=== PATIENT | male | born 1990 | race Caucasian/White ===

== ENCOUNTER 2017-04-09 20:02 | Emergency (ER) | payer OTHER ==
[2017-04-09 21:10] VITALS: BP 103/60
--- NOTE | 2017-04-09 21:26 | RAD ---
INDICATION: Right foot injury COMPARISON: None TECHNIQUE: AP, lateral, and oblique views were obtained. FINDINGS: There are mildly displaced transverse fracture through the distal aspects of the third and fourth metatarsals. There are no other fractures. The articular relationships are maintained. There is prominent soft tissue swelling over the mid and forefoot. IMPRESSION: THIRD AND FOURTH METATARSAL FRACTURES.
--- NOTE | 2017-04-09 21:26 | RAD ---
INDICATION: Ankle injury COMPARISON: None TECHNIQUE: AP, lateral, and oblique views were obtained. FINDINGS: The bony structures, joint spaces, and soft tissues are normal for age. IMPRESSION: NEGATIVE EXAMINATION.
[2017-04-09] MEDS ORDERED: Ibuprofen TAB* 800 MG PO ONE (22:09)
[2017-04-09] MEDS ORDERED: oxyCODONE/Acetamin 5/325 MG* TAB PO ONE (22:10)
--- NOTE | 2017-04-09 22:12 | ED ---
Lower Extremity - HPI Summary HPI Summary: 26M presents with right foot pain today after jumped off rock. pain is greatest in his toes with swelling located there. he has not taken anything for pain. He has not ambulate since. He denies any numbness or tingling. He denies any previous injury to the area. - History of Current Complaint Chief Complaint: EDExtremityLower Stated Complaint: RIGHT FOOT INJURY Time Seen by Provider: 04/09/17 21:03 Pain Intensity: 6 - Allergies/Home Medications Allergies/Adverse Reactions: Allergies Allergy/AdvReac Type Severity Reaction Status Date / Time No Known Allergies Allergy Verified 04/09/17 20:08 PMH/Surg Hx/FS Hx/Imm Hx Endocrine/Hematology History: Denies: Hx Anticoagulant Therapy Cardiovascular History: Denies: Hx Hypertension Infectious Disease History: No Infectious Disease History: Denies: Traveled Outside the [place] in Last 30 Days - Family History Known Family History: Positive: Hypertension - Social History Alcohol Use: Weekly Substance Use Type: Reports: Marijuana Smoking Status (MU): Former Smoker Review of Systems Negative: Fever Negative: Chest Pain Negative: Shortness Of Breath Positive: Myalgia - right foot pain All Other Systems Reviewed And Are Negative: Yes Physical Exam Triage Information Reviewed: Yes Vital Signs On Initial Exam: Initial Vitals Temp Pulse Resp BP Pulse Ox 99.7 F 92 16 103/61 99 04/09/17 20:05 04/09/17 20:05 04/09/17 20:05 04/09/17 20:05 04/09/17 20:05 Vital Signs Reviewed: Yes Appearance: Positive: Well-Appearing Skin: Positive: Warm, Dry Head/Face: Positive: Normal Head/Face Inspection Eyes: Positive: Normal, EOMI, Conjunctiva Clear Respiratory/Lung Sounds: Positive: Clear to Auscultation, Breath Sounds Present Cardiovascular: Positive: Normal, RRR Musculoskeletal: Positive: Limited @ - toes right, Edema Right - right toes, Other - tender over 3 and 4th toes, capillary refill<2 secs, good pulses Procedures - Splinting Location: right foot Hand-Made Type: fiberglass Splint: posterior walking Pre-Proc Neuro Vasc Exam: normal Post-Proc Neuro Vasc Exam: normal Diagnostics - Vital Signs Vital Signs Temp Pulse Resp BP Pulse Ox 04/09/17 21:04 99.1 F 92 16 103/60 98 04/09/17 20:05 99.7 F 92 16 103/61 99 - Laboratory Lab Statement: Any lab studies that have been ordered have been reviewed, and results considered in the medical decision making process. Lower Extremity Course/Dx - Course Course Of Treatment: 26M presents with right foot pain today after jumped off rock. pain is greatest in his toes with swelling located there. he has not taken anything for pain. He has not ambulate since. He denies any numbness or tingling. He denies any previous injury to the area. xray showed fx of 3rd and 4th metatarsal. placed in posterior walking splint and told to follow up with ortho. patient understands and agrees with plan. - Diagnoses Differential Diagnosis/HQI/PQRI: Positive: Fracture (Closed), Sprain, Strain Provider Diagnoses: Fracture of metatarsal of right foot, closed Discharge - Discharge Plan Condition: Good Disposition: HOME Prescriptions: oxyCODONE/Acetamin 5/325 MG* [Percocet 5/325 TAB*] 1 tab PO Q6H PRN #16 tab MDD 4 PRN Reason: Pain Patient Education Materials: Toe Fracture (ED) Referrals: Deirdre Carranza MD [Primary Care Provider] - Mason Gregory MD [Medical Doctor] - Additional Instructions: Use crutches and stay nonweight bearing Keep splint on area and keep dry Call ortho office tomorrow to set up appointment for follow up Use ibuprofen for pain every 6 hours and use narcotic for breakthrough pain Ice, elevate Return to ED if develop numbness or tingling or any new or worsening symptoms
== END 2017-04-09 22:17 | disposition home or self-care (01) ==
LOC: ED 20:02
DX: S92.301A Fracture of unspecified metatarsal bone(s), right foot, initial encounter for closed fracture (principal); M79.671 Pain in right foot; Z87.891 Personal history of nicotine dependence; S82.891A Other fracture of right lower leg, initial encounter for closed fracture; X50.9XXA Other and unspecified overexertion or strenuous movements or postures, initial encounter; Y93.9 Activity, unspecified; Y92.9 Unspecified place or not applicable
CPT/HCPCS: 99282; A9270-GY

== ENCOUNTER 2017-04-13 11:47 | Day surgery (SDC) | payer OTHER ==
[~2017-04-13 11:47] MED LIST: Buffered Lidocaine 0.9% SYRIN* 5 ML/SYR SYRINGE INTRADERM ONE; Famotidine IV* 10 MG/ML 2 ML (20 mg) IV ONE; Morphine INJ* 2 MG/ML 1 ML SYRINGE IV PRN; PROCHLORPERAZINE INJ 5 MG/ML 2 ML VIAL IV PRN; fentaNYL* 50 MCG/ML 2 ML VIAL (100 MCG VIAL) IV PRN; oxyCODONE/Acetamin 5/325 MG* TAB PO PRN
[2017-04-13] MEDS ORDERED: Famotidine IV* 10 MG/ML 2 ML (20 mg) ONE (11:56)
[2017-04-13] MEDS ORDERED: Buffered Lidocaine 0.9% SYRIN* 5 ML/SYR SYRINGE ONE (11:56)
[2017-04-13] MEDS ORDERED: fentaNYL* 50 MCG/ML 2 ML VIAL (100 MCG VIAL) ONE ×2 (12:05→14:28)
[2017-04-13] MEDS ORDERED: Midazolam* 1 MG/ML 5 ML VIAL (5 MG) ONE (12:05)
[2017-04-13] MEDS ORDERED: KETAMINE HCL* 50 MG/ML 10 ML VIAL ONE (12:30)
[2017-04-13] MEDS ORDERED: Bupivacaine 0.5% SDV PF* 30 ML VIAL ONE (12:38)
[2017-04-13] MEDS ORDERED: ceFAZolin 2 GM in 100 MLS NS (*) BAG IVPB ONE (12:46)
[2017-04-13] MEDS ORDERED: Propofol* 10 MG/ML 20 ML BTL IV PUSH ONE (13:07)
[2017-04-13] MEDS ORDERED: Dexamethasone IV* 4 MG/ML 1 ML (4 MG) ONE (13:07)
[2017-04-13] MEDS ORDERED: Ketorolac INJ* 30 MG/ML 1 ML VIAL ONE (13:07)
[2017-04-13] MEDS ORDERED: Ondansetron INJ* 2 MG/ML VIAL ONE (13:07)
[2017-04-13] MEDS ORDERED: PROCHLORPERAZINE INJ 5 MG/ML 2 ML VIAL ONE (13:07)
[2017-04-13] MEDS ORDERED: Morphine INJ* 10 MG/ML 1 ML SYRINGE ONE ×2 (13:09→14:27)
[2017-04-13] MEDS ORDERED: EPHEDrine (Pressors)* 50 MG/ML VIAL ONE (13:15)
[2017-04-13] MEDS ORDERED: Glycopyrrolate IV* 0.2 MG/ML 1 ML VIAL ONE (13:15)
[2017-04-13] MEDS ORDERED: oxyCODONE/Acetamin 5/325 MG* TAB ONE (14:28)
--- NOTE | 2017-04-13 14:35 | RAD ---
CPT II Codes: 6045F INDICATION: ORIF of the right foot TECHNIQUE: Intraoperative fluoroscopy was provided during ORIF of the right foot. FINDINGS: A single spot film depicts a plate and screw fixator along the medial margin of the right tarsometatarsal bones with the 3 more proximal screws spanning the Lisfranc joint. Fluoroscopy time: 3.1 seconds IMPRESSION: As above.
[2017-04-13 16:06] VITALS: BP 110/69
--- NOTE | 2017-04-14 02:00 | OP ---
DATE OF OPERATION: 04/13/17 - [facility] DATE OF : 89 SURGEON: Mason Gregory MD MAGNETIC GRINDER OPERATOR: Jessika Ceballos PA-C ANESTHESIOLOGIST: Kali Bridges MD ANESTHESIA: General PRE-OP DIAGNOSIS: Right fracture dislocation, midfoot joint. POST-OP DIAGNOSIS: Right fracture dislocation, midfoot joint. OPERATIVE PROCEDURE: Open reduction and internal fixation, right midfoot joints. DESCRIPTION OF PROCEDURE: The patient was taken to the operating room where a longitudinal incision was made over the dorsum of the first metatarsal tarsal joint. We raised the flap over the dorsal aspect of the second tarsometatarsal joint. There was significant widening of the Lisfranc area, but also 50% subluxation of the first TMT joint laterally. We reduced the first TMT joint by manual adduction and then pinned this temporarily. This brought this second TMT joint back into its near neutral position, but this was compressed with a point of reduction clamp. We then fashioned the one-third tubular plate along the medial aspect of the midfoot fixing this initially with an intercuneiform screw and then with renewed compression at the second metatarsal first cuneiform joint. A screw was placed obliquely across that articulation. Then the third screw went from the metatarsal 1 to 2 and the third and fourth were just uniosseous bicortical. X- rays intraoperatively showed satisfactory reduction of the deformity and position of the plate. We irrigated thoroughly closing with Vicryl and gopal for the skin and a compression dressing and plaster splint applied. [id number] #: [id number] MTDD
== END 2017-04-13 16:07 | disposition home or self-care (01) ==
LOC: OR 11:47
PROVIDERS: ATTEND Orthopaedic Surgery
DX: S93.326A Dislocation of tarsometatarsal joint of unspecified foot, initial encounter (principal); W17.81XA Fall down embankment (hill), initial encounter; Y92.89 Other specified places as the place of occurrence of the external cause
CPT/HCPCS: 76001; A9270-GY; C1713; C1776; J0690; J0780; J1100; J1885; J2250; J2270; J2405; J2704; J3010

== ENCOUNTER 2017-06-14 09:24 | Emergency (ER) | payer OTHER ==
[2017-06-14 11:39] LABS: Manual Entry Verification HAN0055
[2017-06-14 11:42] LABS: Mono Internal Control QC Line Present
[2017-06-14 11:50] VITALS: BP 138/72
[2017-06-14] MEDS ORDERED: Ibuprofen TAB* 600 MG ONE (11:51)
[2017-06-14] MEDS ORDERED: Ibuprofen TAB* 600 MG PO ONE (11:51)
[2017-06-14] MEDS ORDERED: Amoxicillin/Clavulanate TAB* 875 MG PO ONE (12:53)
--- NOTE | 2017-06-14 12:58 | ED ---
Leonora Giraldo SooYoung, scribed for Jigar Forrest MD on 06/14/17 at 1245 . Influenza-Like Illness - HPI Summary HPI Summary: A 26 y/o M presents to ED with c/o sudden onset of flu-like symptoms onset two days ago. Sx include fever, fatigue, swollen tonsils, L-sided sore throat, ear ache, posterior ESPINO. Denies cough, congestion. NKA. He states pain is enough to disrupt sleeping. - History of Current Complaint Chief Complaint: EDThroatPain Time Seen by Provider: 06/14/17 12:41 Hx Obtained From: Patient Onset/Duration: Sudden Onset, Lasting Days - two days, Still Present Severity: Moderate Associated Signs & Symptoms: Fever, Sore Throat, Headache - Allergy/Home Medications Allergies/Adverse Reactions: Allergies Allergy/AdvReac Type Severity Reaction Status Date / Time No Known Allergies Allergy Verified 06/14/17 09:35 PMH/Surg Hx/FS Hx/Imm Hx Previously Healthy: Yes Endocrine/Hematology History: Denies: Hx Anticoagulant Therapy Cardiovascular History: Denies: Hx Hypertension Infectious Disease History: No Infectious Disease History: Denies: Traveled Outside the [place] in Last 30 Days - Family History Known Family History: Positive: Hypertension - Social History Occupation: Employed Full-time Lives: Alone Alcohol Use: Weekly Hx Substance Use: Yes Substance Use Type: Reports: Marijuana Substance Use Comment - Amount & Last Used: PT DOES SMOKE MARIJUANA DAILY Hx Tobacco Use: No Smoking Status (MU): Never Smoked Tobacco Review of Systems Positive: Fever, Fatigue Positive: Sore Throat - and swollen tonsils, Ear Ache, Other - neg: congestion Cardiovascular: Negative Negative: Cough Genitourinary: Negative Musculoskeletal: Negative Skin: Negative Positive: Headache Psychological: Normal All Other Systems Reviewed And Are Negative: Yes Physical Exam Triage Information Reviewed: Yes Vital Signs On Initial Exam: Initial Vitals Temp Pulse Resp BP Pulse Ox 98.7 F 79 14 137/72 100 06/14/17 09:29 06/14/17 09:29 06/14/17 09:29 06/14/17 09:29 06/14/17 09:29 Vital Signs Reviewed: Yes Appearance: Positive: Well-Appearing, No Pain Distress Skin: Positive: Warm, Skin Color Reflects Adequate Perfusion, Dry Head/Face: Positive: Normal Head/Face Inspection Eyes: Positive: EOMI, [facility]ANGEL[facility] ENT: Positive: TMs normal, Tonsillar swelling - on L that is erythematous and with exudate, Other - No evidence of peritonsillar abscess at this time Neck: Positive: Supple, Nontender Respiratory/Lung Sounds: Positive: Clear to Auscultation, Breath Sounds Present Cardiovascular: Positive: RRR Musculoskeletal: Positive: Normal, Strength/ROM Intact Neurological: Positive: Normal, Sensory/Motor Intact, Alert, Oriented to Person Place, Time Psychiatric: Positive: Affect/Mood Appropriate Diagnostics - Vital Signs Vital Signs Temp Pulse Resp BP Pulse Ox 06/14/17 11:48 99.1 F 71 14 138/72 98 06/14/17 09:29 98.7 F 79 14 137/72 100 - Laboratory Lab Results: Lab Results 06/14/17 06/14/17 Range/Units 10:13 10:49 Monoscreen Negative (Negative) Group A Strep Rapid Negative (Negative) Lab Statement: Any lab studies that have been ordered have been reviewed, and results considered in the medical decision making process. Flu Symptom Course/Dx - Course Course Of Treatment: Pt is a 26 y/o M presenting with sudden onset fever, fatigue, swollen tonsils, L-sided sore throat, ear ache, posterior ESPINO onset two days ago. Denies cough, congestion. NKA. He states pain is enough to disrupt sleeping. Strep test is negative. NO SIGN OF BERNABE TONSILLAR ABSCESS AT THIS TIME. RX AUGMENTIN. F/U PMD; RETURN IF WORSE. - Diagnoses Provider Diagnoses: Tonsillitis, Pharyngitis Discharge - Discharge Plan Condition: Stable Disposition: HOME Prescriptions: Amoxicillin/Clavulanate TAB* [Augmentin TAB 875*] 875 mg PO BID #19 tab HYDROcodone/ACETAMIN 5-325 MG* [[place] 5-325 TAB*] 1 tab PO Q4H PRN #15 tab MDD 6 PRN Reason: Pain Patient Education Materials: Hydrocodone/Acetaminophen (By mouth), Amoxicillin/ Clavulanate Potassium (By mouth), Pharyngitis (ED), Tonsillitis (ED) Referrals: Deirdre Carranza MD [Primary Care Provider] - 3 Days Additional Instructions: Follow up with your primary care provider in 3 days. Return to the emergency department for changing or worsening symptoms such as increased pain, hoarse voice. The documentation as recorded by the scribLeonora chin SooYoung accurately reflects the service I personally performed and the decisions made by me, Jigar Forrest MD.
== END 2017-06-14 13:20 | disposition home or self-care (01) ==
LOC: ED 09:24
DX: J03.90 Acute tonsillitis, unspecified (principal); J02.9 Acute pharyngitis, unspecified; R51 Headache
CPT/HCPCS: 36415; 86308; 87651; 99282; A9270-GY